=== PATIENT | female | born 1975 | race Hispanic/Latino ===

== ENCOUNTER 2025-01-13 05:09 | Emergency (ER) | payer SELFPAY ==
[~2025-01-13] VITALS: Ht 157.5 cm; Wt 116.1 kg
[2025-01-13] MEDS: KETOROLAC TROMETHAMINE 60 MG/2 ML VIAL IM STA (05:31)
[2025-01-13] MEDS ORDERED: ULTRAM 50MG50 MG PO (05:45)
[2025-01-13 05:50] VITALS: PULSE 68; RESP 17; TEMP 98.1
[2025-01-13 05:57] VITALS: BP 125/80; O2SAT 100
== END 2025-01-13 05:55 | disposition home or self-care (01) ==
LOC: ER 05:13
DX: M25.561 Pain in right knee (principal); M70.41 Prepatellar bursitis, right knee
CPT/HCPCS: 73562; 99284; J1885